=== PATIENT | female | born 1975 | race Two or more races ===

== ENCOUNTER → 2016-11-12 | Outpatient (CLI) | payer OTHER | LOC: SBRMNEURO 20:00 | PROVIDERS: ATTEND Internal Medicine Pulmonary Disease | DX: G47.33 Obstructive sleep apnea (adult) (pediatric) (principal) ==

== ENCOUNTER → 2018-08-14 | Outpatient (CLI) | payer OTHER | LOC: CIMAGING 16:34 | PROVIDERS: ATTEND Physician Assistant Medical | DX: E04.9 Nontoxic goiter, unspecified (principal); J02.9 Acute pharyngitis, unspecified | CPT/HCPCS: 76536-PO ==